=== PATIENT | male | born 1975 | race Two or more races ===

== ENCOUNTER 2023-08-07 18:07 | Inpatient (IN) | payer SELFPAY ==
[~2023-08-07] VITALS: Ht 172.7 cm; Wt 108.0 kg
[2023-08-07 18:48] VITALS: PULSE 79; RESP 14; O2SAT 96
[2023-08-07 19:29] LABS: Basophils # (auto) 0.1 10 ^3/uL (0-0.2); Basophils % (auto) 0.7 % (0.0-2.0); Eosinophils # (auto) 0.2 10 ^3/uL (0-0.8); Eosinophils % (auto) 2.4 % (0.0-7.0); Hematocrit 47.6 % (41.0-53.0); Lymphocytes # (auto) 2.9 10 ^3/uL (0.4-5.4); Lymphocytes % (auto) 36.7 % (10.0-50.0); Mean Corpuscular Hemoglobin 32.9 pg (28.0-32.0); Mean Corpuscular Hgb Conc. 33.7 g/dL (32.0-36.0); Mean Corpuscular Volume 97.8 fL (80.0-100.0); Monocytes # (auto) 0.7 10 ^3/uL (0-1.3); Monocytes % (auto) 8.5 % (0.0-12.0); Neutrophils # (auto) 4.1 10 ^3/uL (1.6-8.6); Neutrophils % (auto) 51.7 % (37.0-80.0); Nucleated Red Blood Cells % 0.1 %; Red Blood Cells 4.87 10^6/uL (4.5-5.90); Red Cell Distribution Width 13.3 % (11.8-14.3)
[2023-08-07 19:30] VITALS: PULSE 76; RESP 13; O2SAT 93
[2023-08-07 19:41] LABS: Alanine Aminotransferase 69 U/L (7-40); Albumin 4.4 g/dL (3.2-4.8); Alkaline Phosphatase 110 U/L (46-116); Anion Gap 14 (5-15); Aspartate Aminotransferase 51 U/L (13-40); Calcium 9.3 mg/dL (8.5-10.1); Carbon Dioxide 20 mmol/L (20-30); Chloride 102 mmol/L (98-107); Glucose 364 mg/dL (74-106); Potassium 3.9 mmol/L (3.5-5.1); Sodium 136 mmol/L (136-145)
[2023-08-07 19:42] LABS: Bilirubin, Total 0.6 mg/dL (0.2-1.0); Total Protein 7.7 g/dL (5.7-8.2)
[2023-08-07 19:44] LABS: BUN/Creatinine Ratio 6.8 (10.0-20.0); Blood Urea Nitrogen < 5 mg/dL (9-23)
[2023-08-07] MEDS ORDERED: InsuLIN REG 1unit/0.01ml Soln (100units/ml) IV ONE ×2 (22:15→23:00)
[2023-08-07] MEDS ORDERED: DEXTROSE (50%) 50ML SYRG IV PRN (23:00)
[2023-08-07] MEDS ORDERED: DOCUSATE SOD 100 MG CAP PO PRN (23:15)
[2023-08-07] MEDS ORDERED: ONDANSETRON HCL 4 MG/2 ML VIAL IV PRN (23:15)
[2023-08-07] MEDS ORDERED: ACETAMINOPHEN 325 MG TAB PO PRN (23:15)
[2023-08-08] MEDS ORDERED: B-COMPLEX W/ C & FOLIC ACID(NEPHROVITE TAB) PO ONE (01:15)
[2023-08-08] MEDS: SODIUM CHLOR 0.9% PF (SALINE LOCK) 10ML VIAL/SYR IV SCH ×2 (06:09→14:08)
[2023-08-08] MEDS: ACCU-CHEK COMFORT CURVE STRIP VI SCH ×2 (06:45→11:46)
[2023-08-08] MEDS: InsuLIN REG 1unit/0.01ml Soln (100units/ml) SC SCH ×2 (06:45→11:45)
[2023-08-08 07:09] LABS: Urine Bacteria NONE SEEN /hpf (None Seen); Urine Blood Negative /uL (Negative); Urine Clarity Clear (Clear); Urine Color Yellow (Yellow); Urine Protein, UAD TRACE (Negative); Urine Specific Gravity 1.019 (1.001-1.035); Urine WBC <1 /hpf (0 - 3); Urine pH 5.5 (5.0-8.0)
[2023-08-08 07:27] VITALS: PULSE 90; RESP 18; O2SAT 96
[2023-08-08] MEDS: HYDROcodone-ACET 5/325MG TAB PO PRN ×2 (09:31→14:08)
[2023-08-08] MEDS ORDERED: ENOXAPARIN SOD 40 MG/0.4 ML SYRINGE SC SCH (10:00)
[2023-08-08 14:03] VITALS: BP 142/90; PULSE 76; RESP 16; TEMP 98.1; O2SAT 96
[2023-08-08] MEDS ORDERED: INSULIN LANTUS (GLARGINE) 1 /0.01ml (100units/ml) SC SCH (22:00)
[2023-08-08] MEDS ORDERED: InsuLIN REG 1unit/0.01ml Soln (100units/ml) SC SCH (22:00)
== END 2023-08-08 15:46 | disposition home or self-care (01) | DRG 638 ==
LOC: EDBD 18:07 → ER 18:07 → OVERFLOW 23:05
PROVIDERS: ADMIT Internal Medicine; ATTEND Internal Medicine
DX: E11.65 Type 2 diabetes mellitus with hyperglycemia (principal); I42.9 Cardiomyopathy, unspecified; R09.02 Hypoxemia; F10.10 Alcohol abuse, uncomplicated
CPT/HCPCS: 36415; 71045; 80053; 81001; 82962; 83036; 83880; 84484; 85025; 96374; G0378; J1815

== ENCOUNTER 2024-11-21 14:32 | Inpatient (IN) | payer MEDICAID ==
[~2024-11-21] VITALS: Ht 165.1 cm; Wt 79.5 kg
--- NOTE | 2024-11-21 15:51 | ED.PDOC ---
Musculoskeletal HPI Comments 49 year old male presents to the ED with a chief complaint of bilateral foot numbness onset 2 months. Patient states for the past 2 months, he has been experiencing bilateral foot numbness. For the past 2 weeks, patient noticed RT great toe is numb, red and warm to touch. He also states he has been experiencing joint pain for the past month. He saw PCP, was given medication with no improvement of symptoms. PMHx DM. Denies chest pain, shortness of breath, dizziness, nausea, vomiting, diarrhea, fever, chills. No other symptoms or modifying factors present at this time. Chief Complaint: Lower Extremity Time Seen by MD: 15:30 Reviewed Notes: Medications, Allergies Allergies: Coded Allergies: NO KNOWN ALLERGIES (Unverified , 08/07/23) Information Source: Patient Mode of Arrival: Ambulatory Location: Bilateral Extremity Location: Foot Timing: Months Prehospital treatment: None Severity: Moderate Able to Move Extremity: Yes Bear Weight: Limited Pain: Moderate Mechanism: Spontaneous Circumstances: Spontaneous Onset of Symptoms: Spontaneous Symptoms: Pain DVT Risk Factors: NONE Associated signs and symptoms: Numbness (bilateral ) Past Medical History PAST MEDICAL HISTORY: DM Surgical History: Denies all surgeries Family History Family History: Unknown Social History Smoker: Non-Smoker Alcohol: Heavy Drugs: Denies Drug Use Lives In: Home Constitutional: denies: chills, diaphoresis, fatigue, fever, malaise, sweats, weakness, others EENTM: denies: blurred vision, double vision, ear bleeding, ear discharge, ear drainage, ear pain, ear ringing, eye pain, eye redness, hearing loss, mouth pain, mouth swelling, nasal discharge, nose bleeding, nose congestion, nose pain, photophobia, tearing, throat pain, throat swelling, voice changes, others Respiratory: denies: cough, hemoptysis, orthopnea, SOB at rest, shortness of breath, SOB with excertion, stridor, wheezing, others Cardiovascular: denies: chest pain, dizzy spells, diaphoresis, Dyspnea on exertion, edema, irregular heart beat, left arm pain, lightheadedness, palpitations, PND, syncope, others Gastrointestinal: denies: abdomen distended, abdominal pain, blood streaked bowels, constipated, diarrhea, dysphagia, difficulty swallowing, hematemesis, melena, nausea, poor appetite, poor fluid intake, rectal bleeding, rectal pain, vomiting, others Genitourinary: denies: burning, dysuria, flank pain, frequency, hematuria, incontinence, penile discharge, penile sore, pain, testicle pain, testicle swelling, urgency, others Neurological: reports: numbness (bilateral feet); denies: dizziness, fainting, headache, left sided numbness, left sided weakness, paresthesia, pre-existing deficit, right sided numbness, right sided weakness, seizure, speech problems, tingling, tremors, weakness, others Musculoskeletal: reports: joint pain, others (RT big toe pain, swelling, numbness); denies: back pain, gout, joint swelling, muscle pain, muscle stiffnes s, neck pain Integumetry: denies: bruises, change in color, change in hair/nails, dryness, laceration, lesions, lumps, rash, wounds, others Allergic/Immunocompromised: denies: Difficulty Healing, Frequent Infections, Hives, Itching, others Hematologic/Lymphatic: denies: anemia, blood clots, easy bleeding, easy bruisi ng, swollen glands, others Endocrine: denies: excessive hunger, excessive sweating, excessive thirst, exce ssive urination, flushing, intolerance to cold, intolerance to heat, unexplained weight gain, unexplained weight loss, others Psychiatric: denies: anxiety, bipolar disorder, depression, hopeless, panic disorder, schizophrenia, sleepless, suicidal, others All Other Systems: Reviewed and Negative Physical Exam General Appearance: No Apparent Distress, Normal HEENT: Normal ENT Inspection, Pharynx Normal, TMs Normal Neck: Full Range of Motion, Non-Tender, Normal, Normal Inspection Respiratory: Chest Non-Tender, Lungs Clear, No Accessory Muscle Use, No Respiratory Distress, Normal Breath Sounds Cardiovascular: No Edema, No JVD, No Murmur, No Gallop, Normal Peripheral Pulses, Regular Rate/Rhythm Breast Exam: Deferred Gastrointestinal: No Organomegaly, Non Tender, No Pulsatile Mass, Normal Bowel Sounds, Soft Genitalia: Deferred Pelvic: Deferred Rectal: Deferred Extremities: No calf tenderness, Normal capillary refill, Other (erythema and warmth to RT big toe) Musculoskeletal : Apperance: Normal Neurologic: Alert, wildlife conservation officer II-XII nml as Tested, No Motor Deficits, Normal Affect, Normal Mood, No Sensory Deficits Cerebellar Function: Normal Reflexes: Normal Skin: Dry Lymphatic: No Adenopathy Was a procedure done? Was a procedure done?: No Differential Diagnosis EXT Differential Diagnosis: Cellulitis, Fracture X-Ray, Labs, Meds, VS Vital Signs Date Time Temp Pulse Resp B/P (MAP) Pulse Ox O2 Delivery O2 Flow Rate FiO2 11/21/24 16:28 98.6 78 16 136/90 (105) 98 98.6 11/21/24 14:50 98.6 84 16 154/94 (114) 97 98.6 Lab Test 11/21/24 16:00 Range/Units White Blood Count 9.0 4.4-10.8 10^3/uL Red Blood Count 4.21 L 4.5-5.90 10^6/uL Hemoglobin 13.8 13.5-17.5 g/dL Hematocrit 40.1 L 41.0-53.0 % Mean Corpuscular Volume 95.3 80.0-100.0 fL Mean Corpuscular Hemoglobin 32.7 H 28.0-32.0 pg Mean Corpuscular Hemoglobin Concent 34.3 32.0-36.0 g/dL Red Cell Distribution Width 12.3 11.8-14.3 % Platelet Count 212 140-450 10^3/uL Mean Platelet Volume 7.8 6.9-10.8 fL Neutrophils (%) (Auto) 50.5 37.0-80.0 % Lymphocytes (%) (Auto) 35.7 10.0-50.0 % Monocytes (%) (Auto) 9.8 0.0-12.0 % Eosinophils (%) (Auto) 3.3 0.0-7.0 % Basophils (%) (Auto) 0.7 0.0-2.0 % Neutrophils # (Auto) 4.6 1.6-8.6 10 ^3/uL Lymphocytes # (Auto) 3.2 0.4-5.4 10 ^3/uL Monocytes # (Auto) 0.9 0-1.3 10 ^3/uL Eosinophils # (Auto) 0.3 0-0.8 10 ^3/uL Basophils # (Auto) 0.1 0-0.2 10 ^3/uL Nucleated Red Blood Cells 0.0 % Sodium Level 140 136-145 mmol/L Potassium Level 3.5 3.5-5.1 mmol/L Chloride Level 108 H 98-107 mmol/L Carbon Dioxide Level 23 20-31 mmol/L Anion Gap 9 5-15 Blood Urea Nitrogen 15 9-23 mg/dL Creatinine 0.65 L 0.700-1.30 mg/dL Glomerular Filtration Rate Calc 116 >90 mL/min BUN/Creatinine Ratio 23.1 H 10.0-20.0 Serum Glucose 98 74-106 mg/dL Lactic Acid Level 1.4 0.4-2.0 mmol/L Calcium Level 9.1 8.7-10.4 mg/dL Total Bilirubin 1.0 0.2-1.0 mg/dL Aspartate Amino Transferase (AST) 21 13-40 U/L Alanine Aminotransferase (ALT) 17 7-40 U/L Alkaline Phosphatase 80 46-116 U/L Total Protein 7.3 5.7-8.2 g/dL Albumin 4.1 3.2-4.8 g/dL Current Medications Medications (Trade) Dose Ordered Sig/Kelsey Route Start Time Stop Time Status Last Admin Sodium Chloride 1,000 ml @ 1,000 mls/hr Q1H ONCE IV 11/21/24 15:45 11/21/24 16:44 DC 11/21/24 16:21 Vancomycin HCl 200 ml @ 200 mls/hr ONCE ONCE IV 11/21/24 15:45 11/21/24 16:44 DC 11/21/24 16:21 Cefepime HCl 50 ml @ 12.5 mls/hr ONCE ONCE IV 11/21/24 15:45 11/21/24 19:44 11/21/24 17:07 Time of 1ST Reevaluation: 16:00 Reevaluation 1ST: Unchanged Patient Education/Counseling: Diagnosis, Treatment, Prognosis Family Education/Counseling: No Family Present Additional Information The following tests were ordered, and results were reviewed by me: XY R FOOT 3V, CBC, LA W/ REFLEX, CMP, BLOOD CULTURE I reviewed and agreed with the following test results read by other providers: XY R FOOT 3V I discussed treatment and results with medical personnel and: Patient Comprehensive systems review obtained and negative except for what is stated in the HPI. Departure 1 Departure Time of Disposition: 18:02 (Patient with concern for cellulitis. Patient's labs are benign however patient's symptoms seem to be worsening. We will empirically cover patient with antibiotics and admit for further workup) Impression: Primary Impression: Cellulitis of right lower extremity Additional Impressions: Paresthesias Generalized weakness Uncontrolled diabetes mellitus Qualified Codes: E11.65 - Type 2 diabetes mellitus with hyperglycemia Disposition: 09 ADMITTED INPATIENT Admit to: Med Surg Condition: Serious Critical Care Note Critical Care Time?: No Stability Stability form required: No I personally scribed for LORA GÓMEZ MD ([email or web address]) on 11/21/24 at 15:51. Electronically submitted by Sonia Rodrigues ([email or web address]). I personally scribed for LORA GÓMEZ MD ([email or web address]) on 11/21/24 at 15:52. Electronically submitted by Sonia Rodrigues ([email or web address]). LORA GÓMEZ MD Nov 21, 2024 15:51
--- NOTE | 2024-11-21 16:05 | DVH ---
CLINICAL INDICATION: right foot pain TECHNIQUE: 3 radiographic views of the right foot were obtained. Comparison: None FINDINGS/IMPRESSION: There is no evidence of acute fracture or dislocation. The visualized joint space is well maintained. The alignment is anatomical. There is no radiopaque foreign body.
[2024-11-21 16:19] LABS: Basophils # (auto) 0.1 10 ^3/uL (0-0.2); Basophils % (auto) 0.7 % (0.0-2.0); Eosinophils # (auto) 0.3 10 ^3/uL (0-0.8); Eosinophils % (auto) 3.3 % (0.0-7.0); Hematocrit 40.1 % (41.0-53.0); Hemoglobin 13.8 g/dL (13.5-17.5); Lymphocytes # (auto) 3.2 10 ^3/uL (0.4-5.4); Lymphocytes % (auto) 35.7 % (10.0-50.0); Mean Corpuscular Hemoglobin 32.7 pg (28.0-32.0); Mean Corpuscular Hgb Conc. 34.3 g/dL (32.0-36.0); Mean Corpuscular Volume 95.3 fL (80.0-100.0); Monocytes # (auto) 0.9 10 ^3/uL (0-1.3); Monocytes % (auto) 9.8 % (0.0-12.0); Neutrophils # (auto) 4.6 10 ^3/uL (1.6-8.6); Neutrophils % (auto) 50.5 % (37.0-80.0); Platelet Count (auto) 212 10^3/uL (140-450); Red Blood Cells 4.21 10^6/uL (4.5-5.90); Red Cell Distribution Width 12.3 % (11.8-14.3)
[2024-11-21] MEDS: SODIUM CHLORIDE 0.9% 1,000 ML IV ONE (16:21)
[2024-11-21] MEDS: VANCOMYCIN 1GM/200ML PM 200 ML IV ONE (16:21)
[2024-11-21 16:35] LABS: Alanine Aminotransferase 17 U/L (7-40); Albumin 4.1 g/dL (3.2-4.8); Alkaline Phosphatase 80 U/L (46-116); Anion Gap 9 (5-15); Aspartate Aminotransferase 21 U/L (13-40); BUN/Creatinine Ratio 23.1 (10.0-20.0); Blood Urea Nitrogen 15 mg/dL (9-23); Calcium 9.1 mg/dL (8.7-10.4); Carbon Dioxide 23 mmol/L (20-31); Glucose 98 mg/dL (74-106); Sodium 140 mmol/L (136-145); Total Protein 7.3 g/dL (5.7-8.2)
[2024-11-21 16:40] LABS: Chloride 108 mmol/L (98-107); Potassium 3.5 mmol/L (3.5-5.1)
[2024-11-21] MEDS: CEFEPIME 2GM/50ML NS 50 ML IV ONE (17:07)
--- NOTE | 2024-11-21 23:11 | DVHHPRES ---
History of Present Illness Resident Creating Document: MACHELLE GAY History of Present Illness Demetris Caballero is a 49-year-old male patient who presents to the ED with chief complaint of nonhealing right hallux wound which has been draining purulent discharge from nail bed for the past 2-3 days. Patient also reports bilateral foot numbness from mid leg towards feet. Denies fever, chills, palpitation, syncope, chest pain, dyspnea, abdominal pain, nausea, vomiting, diarrhea, sick contacts, recent travel and other motor or sensory deficits. Past medical history: Diabetes insulin dependent, hypertension, questionable osteoarthritis which started two months ago (he was going to see a broadcasting equipment mechanic as outpatient), history of CHF (he believes ejection fraction is 40%), depression, GERD Surgical history: Hernia repair. Coronary angiography in 2023 with no stent placement Family history: Diabetes in father, mother had heart disease Social history: Lives in [place] with and his offsprings. Ex polysubstance abuse (ethanol which he quit one year ago and methamphetamine which he quit eight years ago). Denies current tobacco, alcohol and other drug abuse. Allergies: Denies Home medication: Insulin, metformin, escitalopram, vitamin-B, pantoprazole, glimepiride, aspirin 81 mg p.o. daily, propranolol 20 mg p.o. daily Patient seen and examined at bedside. Continues complaining of bilateral feet numbness. No purulent discharge from right hallux seen today. Past Medical History Per HPI Past Surgical History Per HPI Family History Per HPI Past Social History Per HPI Review of Systems Review of Systems Per HPI Allergies: Coded Allergies: NO KNOWN ALLERGIES (Unverified , 08/07/23) Exam Vital Signs Vital Signs Date Time Temp Pulse Resp B/P (MAP) Pulse Ox O2 Delivery O2 Flow Rate FiO2 11/21/24 16:28 98.6 78 16 136/90 (105) 98 98.6 Exam Patient lying in bed, in no acute distress General: Lucid, afebrile, mucosae are moist Cardiovascular: Normal S1 and S2. No murmurs, gallops or rubs. Bilateral pulses are conserved. Respiratory: Normal ventilation mechanics. Clear lung sounds on auscultation Abdomen: Soft, nontender, no organomegaly, normal bowel sounds MSK/skin: Mobilizes 4 limbs. Skin is dry and warm. Right foot presents erythema predominantly in toe area, predominant xerosis, no purulent discharge from toe is obtained. Neurological: Oriented in 3 spheres. No motor no sensitive deficits. Pupils are isocoric and reactive Labs/Xrays Labs Test 11/21/24 16:00 Range/Units White Blood Count 9.0 4.4-10.8 10^3/uL Red Blood Count 4.21 L 4.5-5.90 10^6/uL Hemoglobin 13.8 13.5-17.5 g/dL Hematocrit 40.1 L 41.0-53.0 % Mean Corpuscular Volume 95.3 80.0-100.0 fL Mean Corpuscular Hemoglobin 32.7 H 28.0-32.0 pg Mean Corpuscular Hemoglobin Concent 34.3 32.0-36.0 g/dL Red Cell Distribution Width 12.3 11.8-14.3 % Platelet Count 212 140-450 10^3/uL Mean Platelet Volume 7.8 6.9-10.8 fL Neutrophils (%) (Auto) 50.5 37.0-80.0 % Lymphocytes (%) (Auto) 35.7 10.0-50.0 % Monocytes (%) (Auto) 9.8 0.0-12.0 % Eosinophils (%) (Auto) 3.3 0.0-7.0 % Basophils (%) (Auto) 0.7 0.0-2.0 % Neutrophils # (Auto) 4.6 1.6-8.6 10 ^3/uL Lymphocytes # (Auto) 3.2 0.4-5.4 10 ^3/uL Monocytes # (Auto) 0.9 0-1.3 10 ^3/uL Eosinophils # (Auto) 0.3 0-0.8 10 ^3/uL Basophils # (Auto) 0.1 0-0.2 10 ^3/uL Nucleated Red Blood Cells 0.0 % Sodium Level 140 136-145 mmol/L Potassium Level 3.5 3.5-5.1 mmol/L Chloride Level 108 H 98-107 mmol/L Carbon Dioxide Level 23 20-31 mmol/L Anion Gap 9 5-15 Blood Urea Nitrogen 15 9-23 mg/dL Creatinine 0.65 L 0.700-1.30 mg/dL Glomerular Filtration Rate Calc 116 >90 mL/min BUN/Creatinine Ratio 23.1 H 10.0-20.0 Serum Glucose 98 74-106 mg/dL Lactic Acid Level 1.4 0.4-2.0 mmol/L Calcium Level 9.1 8.7-10.4 mg/dL Total Bilirubin 1.0 0.2-1.0 mg/dL Aspartate Amino Transferase (AST) 21 13-40 U/L Alanine Aminotransferase (ALT) 17 7-40 U/L Alkaline Phosphatase 80 46-116 U/L Total Protein 7.3 5.7-8.2 g/dL Albumin 4.1 3.2-4.8 g/dL Assessment/Plan Assessment/Plan Assessment: Diabetic foot Cellulitis Rule out osteomyelitis Rule out peripheral artery disease Diabetic Polyneuropathy Hypertension Dyslipidemia History of CHF and polysubstance abuse Questionable nonischemic cardiomyopathy (LVEF per patient 40%) Diabetes insulin dependent - controlled (hemoglobin A1c 7%) Vitamin-D deficiency Plan: Currently patient under empiric IV antibiotic (cefepime and vancomycin). Foot x-ray showed no abnormalities. Patient may benefit from foot MRI Obtain blood and wound culture, pending. Wound consult on board Consulted Podiatry. Ordered echocardiogram to evaluate cardiac dysfunction Ordered bilateral arterial duplex of lower limbs to ruled out peripheral artery disease Started patient on gabapentin for diabetic polyneuropathy Switch propranolol to carvedilol Continue with aspirin atorvastatin Goals of care discussed with patient for over 18 minutes: Full code status Discussed plan with Dr. Trejo, patient and nurses: Currently under empiric IV antibiotic, consulted Podiatry and Wound consult, obtained cultures. Patient may benefit from foot MRI, to be evaluated by appliance mechanic. Ordered echocardiogram and bilateral lower limb arterial duplex. Plan discussed with: Patient, Other (Nurses) My Orders Orders - MACHELLE GAY RESIDENT Procedure Category Date Status Time Admit ADMIT 11/21/24 Transmitted 23:04 Code Status CODE 11/21/24 Transmitted 23:04 Vital Signs [facility] 11/21/24 Transmitted 23:04 Review Orders With [facility] 11/21/24 Transmitted Adm. 23:04 Npo (Nothing By DIET 11/22/24 Transmitted Mouth) Diet Breakfast Lorazepam Tablet PHA 11/21/24 Transmitted (Ativan Tablet) 23:15 Docusate Sodium PHA 11/21/24 Transmitted Capsule (Colace 23:15 Notify Of Changes [facility] 11/21/24 Transmitted From Base 23:04 Advance Directive [facility] 11/21/24 Transmitted 23:04 Echo 2d Mode Cardiac US 11/21/24 Transmitted DOP 23:04 Patient Condition ORDERS 11/21/24 Transmitted 23:04 Allergies [facility] 11/21/24 Transmitted 23:04 Ondansetron Hcl PHA 11/21/24 Transmitted (Zofran) 23:15 Morphine 2mg Iv Q4hprn PHA 11/21/24 Transmitted 23:15 Lovenox 40mg PHA 11/22/24 Transmitted 10:00 Oxygen By Nasal RT 11/21/24 Transmitted Cannula 23:04 Stat Ekg For Chest [facility] 11/21/24 Transmitted Pain 23:04 Notify Of Changes [facility] 11/21/24 Transmitted From Base 23:04 Certified Medical Coding Specialist For [facility] 11/21/24 Transmitted 24 Hours 23:04 Emergency Dysrhythmia [facility] 11/21/24 Transmitted Protocol 23:04 Rhythm Strips Once [facility] 11/21/24 Transmitted Every Shift 23:04 Phosphorus LAB 11/21/24 Transmitted 23:04 Vitamin D, 25-Hydroxy LAB 11/21/24 Transmitted 23:04 Vitamin B12 LAB 11/21/24 Transmitted 23:04 Urinalysis LAB 11/21/24 Transmitted 23:04 Thyroid Stimulating LAB 11/21/24 Transmitted Hormone 23:04 Magnesium LAB 11/21/24 Transmitted 23:04 Lipid Panel LAB 11/21/24 Transmitted 23:04 Hemoglobin A1c LAB 11/21/24 Transmitted 23:04 Drug Screen LAB 11/21/24 Transmitted 23:04 Complete Blood Count LAB 11/22/24 Verified 04:00 Comprehensive LAB 11/22/24 Verified Metabolic Panel 04:00 Chest Xray 1 View XY 11/22/24 Transmitted 05:00 Chest Xray 1 View XY 11/23/24 Transmitted 05:00 Chest Xray 1 View XY 11/24/24 Transmitted 05:00 Chest Xray 1 View XY 11/25/24 Transmitted 05:00 Chest Xray 1 View XY 11/26/24 Transmitted 05:00 Chest Xray 1 View XY 11/27/24 Transmitted 05:00 Chest Xray 1 View XY 11/28/24 Transmitted 05:00 Chest Xray 1 View XY 11/29/24 Transmitted 05:00 Chest Xray 1 View XY 11/30/24 Transmitted 05:00 Chest Xray 1 View XY 12/01/24 Transmitted 05:00 Date of Service: Nov 21, 2024 Billing Provider: ATA TREJO MD Common Visit Codes: [id number] INP/OBS CARE (HIGH) MACHELLE GAY RESIDENT Nov 21, 2024 23:11 ATA TREJO MD Nov 22, 2024 13:27
[2024-11-21] MEDS ORDERED: LORazepam 0.5 MG TAB PO PRN (23:15)
[2024-11-21] MEDS ORDERED: DOCUSATE SOD 100 MG CAP PO PRN (23:15)
[2024-11-21 23:35] LABS: Phosphorus 3.3 mg/dL (2.4-5.1)
[2024-11-21 23:38] LABS: Magnesium 1.4 mg/dL (1.6-2.6)
[2024-11-22] VITALS (7 sets, daily range): BP systolic 113–152; BP diastolic 62–101; PULSE 61–86; RESP 17–20; TEMP 97.4–98.2; O2SAT 97–99
[2024-11-22] MEDS: MORPHINE SULFATE INJ 2 MG/ml SYRG IV PRN (00:07)
[2024-11-22] MEDS ORDERED: DEXTROSE (50%) 50ML SYRG IV PRN (03:45)
[2024-11-22] MEDS ORDERED: VANCOMYCIN PER PHARMACY 0 MG IV SCH (03:45)
[2024-11-22] MEDS ORDERED: MORPHINE SULFATE INJ 2 MG/ml SYRG IV PRN (03:45)
[2024-11-22 04:34] LABS: Basophils # (auto) 0 10 ^3/uL (0-0.2); Basophils % (auto) 0.3 % (0.0-2.0); Eosinophils # (auto) 0.4 10 ^3/uL (0-0.8); Eosinophils % (auto) 3.9 % (0.0-7.0); Hemoglobin 13.4 g/dL (13.5-17.5); Lymphocytes # (auto) 3.8 10 ^3/uL (0.4-5.4); Lymphocytes % (auto) 40.9 % (10.0-50.0); Mean Corpuscular Hemoglobin 32.3 pg (28.0-32.0); Mean Corpuscular Hgb Conc. 33.6 g/dL (32.0-36.0); Mean Corpuscular Volume 96.1 fL (80.0-100.0); Monocytes # (auto) 0.8 10 ^3/uL (0-1.3); Monocytes % (auto) 8.2 % (0.0-12.0); Neutrophils # (auto) 4.4 10 ^3/uL (1.6-8.6); Neutrophils % (auto) 46.7 % (37.0-80.0); Nucleated Red Blood Cells % 0.1 %; Platelet Count (auto) 181 10^3/uL (140-450); Red Blood Cells 4.16 10^6/uL (4.5-5.90); Red Cell Distribution Width 12.1 % (11.8-14.3); White Blood Cell 9.4 10^3/uL (4.4-10.8)
[2024-11-22 04:46] LABS: Alanine Aminotransferase 16 U/L (7-40); Albumin 3.7 g/dL (3.2-4.8); Alkaline Phosphatase 74 U/L (46-116); Anion Gap 9 (5-15); Aspartate Aminotransferase 20 U/L (13-40); Carbon Dioxide 23 mmol/L (20-31); Potassium 3.5 mmol/L (3.5-5.1); Sodium 140 mmol/L (136-145); Total Protein 6.7 g/dL (5.7-8.2)
[2024-11-22] MEDS: PANTOPRAZOLE 40 MG/10 ML VIAL INJ IV ONE (05:10)
[2024-11-22 05:11] LABS: Chloride 108 mmol/L (98-107); Glucose 114 mg/dL (74-106)
[2024-11-22] MEDS: MAGNESIUM SULFATE 1GM/100ML 100 ML IV ONE (05:11)
[2024-11-22 05:19] LABS: BUN/Creatinine Ratio 22.6 (10.0-20.0); Blood Urea Nitrogen 12 mg/dL (9-23)
--- NOTE | 2024-11-22 06:58 | DVH ---
EXAM: XR Chest, 1 View CLINICAL INDICATION: CHF TECHNIQUE: Frontal view of the chest. COMPARISON: XY CHEST PORTABLE on DOS: 08/07/23 FINDINGS: LUNGS AND PLEURAL SPACES: Unremarkable. No consolidation. No pneumothorax. HEART: Unremarkable. No cardiomegaly. MEDIASTINUM: Unremarkable. Normal mediastinal contour. BONES/JOINTS: Unremarkable. No acute fracture. OTHER FINDINGS: . None. IMPRESSION: No acute cardiopulmonary process.
[2024-11-22] MEDS: InsuLIN REG 1unit/0.01ml Soln (100units/ml) SC SCH (07:00)
[2024-11-22] MEDS: ACCU-CHEK COMFORT CURVE STRIP VI SCH (07:00)
[2024-11-22] MEDS: CEFEPIME 1GM/ 50ML 50 ML IV SCH (07:45)
[2024-11-22] MEDS: GABAPENTIN 100 MG CAP PO SCH ×2 (07:45→22:15)
--- NOTE | 2024-11-22 09:52 | DVH ---
Bilateral Lower Extremity Arterial Duplex Date: 11/22/2024 08:16 AM Clinical History: Rule out PAD Comparison: None Findings: Duplex Doppler evaluation including color Doppler and spectral/pulsed waveform analysis of the lower extremity arteries was performed. Bilateral triphasic waveforms IMPRESSION: There is no evidence for peripheral vascular insufficiency in the right lower extremity. There is no evidence for peripheral vascular insufficiency in the left lower extremity. No significant focal stenosis is identified. END IMPRESSION:
[2024-11-22] MEDS: ENOXAPARIN SOD 40 MG/0.4 ML SYRINGE SC SCH (10:03)
[2024-11-22] MEDS: CARVEDILOL 3.125 MG TAB PO SCH (10:03)
[2024-11-22] MEDS: ASPirin 81 mg TAB PO SCH (10:04)
[2024-11-22] MEDS: MULTIPLE VITAMIN TAB PO SCH (10:36)
[2024-11-22] MEDS: ERGOCALCIFEROL 50,000 UNIT(1.25MG) CAP PO SCH (10:36)
--- NOTE | 2024-11-22 15:25 | DVH ---
CLINICAL HISTORY: 49 years old, Male; RULE OUT OSTEOMYELITIS. Indication for recent right foot radio graphs was right foot pain. TECHNIQUE: Multi sequence multi planar MRI images of the right midfoot and forefoot were obtained wi thout IV contrast. COMPARISON: Right foot radiographs dated 11/21/2024. FINDINGS: No acute fracture or focal marrow contusion. No marrow signal abnormality identified to cifuentes ggest osteomyelitis. Mild T2 hyperintense signal in the distal shaft of the 1st metatarsal, may be du e to interosseous cyst. Probable intraosseous ganglion cyst in the calcaneus near the angle of Gissan e. Mild subcutaneous edema, most prominent in the great toe, which is nonspecific, although may be se en with cellulitis in the appropriate clinical setting. No organized fluid collection identified to s uggest abscess. IMPRESSION: 1. Mild subcutaneous edema, most prominent in the great toe, which is nonspecific, but may be seen wi th cellulitis in the appropriate clinical setting. 2. No evidence of abscess or osteomyelitis. 3. Cystic change in the distal 1st metatarsal shaft and in the calcaneus near the angle of Gissane.
[2024-11-22] MEDS ORDERED: HYDROcodone-ACET 5/325MG TAB PO PRN (16:15)
--- NOTE | 2024-11-22 16:44 | DVHPNRES ---
Progress Note Date Seen: Nov 22, 2024 Resident Creating Document: REINIER MORFIN BHUPINDER Has the PT tested + for MRSA If YES, has PT been informed?: No Medical Necessity Reason Pt with a Central, PICC or Fol: No Subjective Review of Systems This is a 49-year-old male with past medical history of diabetes came to the hospital due to nonhealing right hallus wound with purulent discharge from the nail bed from 2-3 days. He also reports bilateral lower limb numbness and paresthesia. He denies fever, chest pain, shortness of breath, abdominal pain, nausea, vomiting, or any recent bowel and bladder habit changes. PMHx: Diabetes insulin dependent, hypertension, questionable osteoarthritis which started two months ago (he was going to see a paint preparer as outpatient), history of CHF (he believes ejection fraction is 40%), depression, GERD PSHx: Hernia repair. Coronary angiography in 2023 with no stent placement Family history: Diabetes in father, mother had heart disease Social history: Lives in [place] with and his offsprings. Ex polysubstance abuse (ethanol which he quit one year ago and methamphetamine which he quit eight years ago). Denies current tobacco, alcohol and other drug abuse. Home medication: Insulin, metformin, escitalopram, vitamin-B, pantoprazole, glimepiride, aspirin 81 mg p.o. daily, propranolol 20 mg p.o. daily Allergic history: No known allergy Patient seen and examined at the bedside. Patient is still complaining of left foot numbness and paresthesia. Patient reports: No new complaints, Feels better Changes from previous H/P or p: No Changes Objective vital signs Vital Sign Date Time Temp Pulse Resp B/P (MAP) Pulse Ox O2 Delivery O2 Flow Rate FiO2 11/22/24 16:35 98.2 76 20 152/101 (118) 97 98.2 11/22/24 02:56 Room Air* 0 21 medications Current Medications Medications Dose Ordered Sig/Kelsey Route Start Time Stop Time Status Last Admin Dose Admin Lorazepam 0.5 mg Q6HP PRN PO 11/21/24 23:15 Docusate Sodium 100 mg BIDPRN PRN PO 11/21/24 23:15 Ondansetron HCl 4 mg Q4HP PRN IV 11/21/24 23:15 Morphine Sulfate 2 mg Q4HPRN PRN IV 11/21/24 23:15 11/22/24 13:16 2 MG Enoxaparin Sodium 40 mg DAILY SC 11/22/24 10:00 11/22/24 10:03 40 MG Cefepime HCl 50 ml @ 12.5 mls/hr Q8HR IV 11/22/24 06:00 11/22/24 15:24 12.5 MLS/HR Vancomycin HCl 0 ml @ 0 mls/hr UD IV 11/22/24 03:45 Morphine Sulfate 2 mg Q6HPRN PRN IV 11/22/24 03:45 Pantoprazole Sodium 40 mg DAILY IV 11/23/24 10:00 Diagnostic Test (Pha) 1 strip ACHS 11/22/24 07:00 11/22/24 16:20 1 STRIP Insulin Human Regular ACHS SC 11/22/24 07:00 Dextrose 50 ml UD PRN IV 11/22/24 03:45 Multivitamins 1 tab DAILY PO 11/22/24 10:00 11/22/24 10:36 1 TAB Aspirin 81 mg DAILY PO 11/22/24 10:00 11/22/24 10:04 81 MG Atorvastatin Calcium 40 mg HS PO 11/22/24 22:00 Carvedilol 3.125 mg Q12HR PO 11/22/24 10:00 11/22/24 10:03 3.125 MG Gabapentin 100 mg TID PO 11/22/24 06:00 11/22/24 15:24 100 MG Ergocalciferol 50,000 unit Q7D PO 11/22/24 10:00 11/22/24 10:36 50,000 UNIT Vancomycin HCl 100 ml @ 100 mls/hr Q8H IV 11/22/24 20:00 Acetaminophen/ Hydrocodone Bitart 1 tab Q6HPRN PRN PO 11/22/24 16:15 UNV Gabapentin 200 mg TID PO 11/22/24 22:00 UNV Cyclobenzaprine HCl 10 mg HS PO 11/22/24 22:00 11/26/24 22:00 UNV Examination General Appearance: Alert, Oriented X3, Cooperative, No acute distress HEENT: Atraumatic, PERRLA, EOMI, Mucous membrane moist/pink Respiratory: Clear to auscultation, Normal air movement Cardiovascular: Regular rate, Normal S1, Normal S2, No murmurs, no chest wall tenderness Abdominal: Normal bowel sounds, Soft, No tenderness, No hepatospenomegaly, No masses Extremities: Right foot presents erythema predominantly in toe area, predominant xerosis, no purulent discharge from toe is obtained. Skin: No rashes, No breakdown, No significant lesion Neuro: Normal gait, Normal speech, Strength at 5/5 X4 ext, Normal tone, Sensation intact, Cranial nerves 3-12 NL, Reflexes 2+ Psych/Mental Status: Mental status NL, Mood NL laboratory and microbiology Laboratory Tests 11/22/24 03:47 Test 11/22/24 03:47 Range/Units Serum Glucose 114 H 74-106 mg/dL Microbiology Date/Time Source Procedure Growth Status 11/21/24 16:00 Blood Blood Culture - Preliminary NO GROWTH AFTER 24 HOURS OF INCUBATION. Resulted Labs and/or images reviewed: Labs reviewed by me, Image(s) reviewed by me Problem List/Assessment/Plan Problem List/Assessment/Plan Diabetic foot Cellulitis Diabetes mellitus type 2 with hyperglycemia Diabetic neuropathy Hypertension Dyslipidemia History of heart failure Ruled out osteomyelitis/b.i.d. MRI shows Mild subcutaneous edema, most prominent in the great toe, which is nonspecific, but may be seen with cellulitis in the appropriate clinical setting.Cystic change in the distal 1st metatarsal shaft and in the calcaneus near the angle of Gissane On Doppler ultrasound there is no There is no evidence for peripheral vascular insufficiency in the right and left lower extremity. Consulted Podiatry Empiric antibiotic, vancomycin and cefepime Pain control Atorvastatin, aspirin and carvedilol DIET: Diabetic diet DVT PROPHYLAXIS: Lovenox CODE STATUS: Goal of care discussed for more than 18 minutes, full code DISPOSITION: Med/surge Patient's status and plan discussed with the patient. Case discussed with Dr. Massey. Plan discussed with: Patient, Other (RN) My Orders My Orders Orders - REINIER MORFIN RESDIENT Procedure Category Date Status Time Consistent DIET 11/22/24 Transmitted Carb(Ccho)Diabetes Dinner HERORYDMALHAJI,HEWAD RESDIENT Nov 22, 2024 16:44
[2024-11-22] MEDS: BACLOFEN 10 MG TAB PO ONE (17:04)
[2024-11-22] MEDS: VANCOMYCIN 750MG KIT 100 ML IV SCH (20:00)
[2024-11-22] MEDS: ATORVASTATIN 20 MG TAB PO SCH (22:14)
[2024-11-22] MEDS: CYCLOBENZAPRINE HCL 10 MG TAB PO SCH (22:15)
[2024-11-23 05:00] VITALS: BP 128/78; PULSE 90; RESP 18; TEMP 97.7; O2SAT 97
--- NOTE | 2024-11-23 06:22 | DVH ---
EXAM: XR Chest, 1 View CLINICAL INDICATION: CHF TECHNIQUE: Frontal view of the chest. COMPARISON: XY CHEST XRAY 1 VIEW on DOS: 11/22/24, XY CHEST PORTABLE on DOS: 08/07/23 FINDINGS: LUNGS AND PLEURAL SPACES: Unremarkable. No consolidation. No pneumothorax. HEART: Unremarkable. No cardiomegaly. MEDIASTINUM: Unremarkable. Normal mediastinal contour. BONES/JOINTS: Unremarkable. No acute fracture. OTHER FINDINGS: . None. IMPRESSION: No acute cardiopulmonary process.
[2024-11-23 07:07] LABS: Alanine Aminotransferase 21 U/L (7-40); Albumin 3.7 g/dL (3.2-4.8); Alkaline Phosphatase 80 U/L (46-116); Anion Gap 10 (5-15); Aspartate Aminotransferase 24 U/L (13-40); BUN/Creatinine Ratio 23.7 (10.0-20.0); Bilirubin, Total 0.9 mg/dL (0.2-1.0); Blood Urea Nitrogen 14 mg/dL (9-23); Calcium 9.2 mg/dL (8.7-10.4); Carbon Dioxide 25 mmol/L (20-31); Chloride 106 mmol/L (98-107); Potassium 3.5 mmol/L (3.5-5.1); Sodium 141 mmol/L (136-145); Total Protein 6.6 g/dL (5.7-8.2)
[2024-11-23 07:09] LABS: Glucose 169 mg/dL (74-106)
[2024-11-23 07:35] LABS: Basophils # (auto) 0 10 ^3/uL (0-0.2); Basophils % (auto) 0.6 % (0.0-2.0); Eosinophils # (auto) 0.3 10 ^3/uL (0-0.8); Eosinophils % (auto) 3.6 % (0.0-7.0); Hematocrit 39.7 % (41.0-53.0); Hemoglobin 13.7 g/dL (13.5-17.5); Lymphocytes # (auto) 2.6 10 ^3/uL (0.4-5.4); Lymphocytes % (auto) 30.2 % (10.0-50.0); Mean Corpuscular Hemoglobin 32.6 pg (28.0-32.0); Mean Corpuscular Hgb Conc. 34.5 g/dL (32.0-36.0); Mean Corpuscular Volume 94.4 fL (80.0-100.0); Monocytes # (auto) 0.7 10 ^3/uL (0-1.3); Monocytes % (auto) 8.6 % (0.0-12.0); Neutrophils # (auto) 4.9 10 ^3/uL (1.6-8.6); Nucleated Red Blood Cells % 0.1 %; Platelet Count (auto) 184 10^3/uL (140-450); Red Cell Distribution Width 12.4 % (11.8-14.3); White Blood Cell 8.6 10^3/uL (4.4-10.8)
[2024-11-23 08:00] VITALS: PULSE 82; RESP 18
[2024-11-23 09:00] VITALS: BP 132/85; PULSE 82; RESP 17; TEMP 99.3; O2SAT 98
[2024-11-23] MEDS: ONDANSETRON HCL 4 MG/2 ML VIAL IV PRN (09:05)
[2024-11-23] MEDS: PANTOPRAZOLE 40 MG/10 ML VIAL INJ IV SCH (09:06)
[2024-11-23 13:00] VITALS: BP 136/93; PULSE 85; RESP 18; TEMP 98.4; O2SAT 96
[2024-11-23] MEDS: AMPICILLIN & SULBACTAM SODIUM 3 GM in SODIUM CHL 0.9% 100 ML IV SCH (13:28)
--- NOTE | 2024-11-23 14:43 | DVHINCON2 ---
Date Seen: Nov 23, 2024 Reason for Consultation Right hallux wound History of Present Illness Demetris Caballero is a 49-year-old male patient who presents to the ED with chief complaint of nonhealing right hallux wound which has been draining purulent discharge from nail bed for the past 2-3 days. Patient also reports bilateral foot numbness from mid leg towards feet. Denies fever, chills, palpitation, syncope, chest pain, dyspnea, abdominal pain, nausea, vomiting, diarrhea, sick contacts, recent travel and other motor or sensory deficits. Past medical history: Diabetes insulin dependent, hypertension, questionable osteoarthritis which started two months ago (he was going to see a post tensioning ironworker helper as outpatient), history of CHF (he believes ejection fraction is 40%), depression, GERD Surgical history: Hernia repair. Coronary angiography in 2023 with no stent placement Family history: Diabetes in father, mother had heart disease Social history: Lives in [place] with and his offsprings. Ex polysubstance abuse (ethanol which he quit one year ago and methamphetamine which he quit eight years ago). Denies current tobacco, alcohol and other drug abuse. Allergies: Denies Home medication: Insulin, metformin, escitalopram, vitamin-B, pantoprazole, glimepiride, aspirin 81 mg p.o. daily, propranolol 20 mg p.o. daily Patient seen and examined at bedside. Continues complaining of bilateral feet numbness. No purulent discharge from right hallux seen today. Past Medical History See H&P Past Surgical History See H&P Family History: Diabetes mellitus G8 FATHER Sinus bradycardia G8 MOTHER Allergies: Coded Allergies: NO KNOWN ALLERGIES (Unverified , 08/07/23) Current Medications Current Medications Medications (Trade) Dose Ordered Sig/Kelsey Route PRN Reason Start Time Stop Time Status Last Admin Pantoprazole Sodium (Protonix) 40 mg DAILY IV 11/23/24 10:00 11/23/24 09:06 Atorvastatin Calcium (Lipitor) 40 mg HS PO 11/22/24 22:00 11/22/24 22:14 Vancomycin HCl 100 ml @ 100 mls/hr Q8H IV 11/22/24 20:00 11/23/24 12:09 DC 11/23/24 04:12 Acetaminophen/ Hydrocodone Bitart ([place] 5/325MG Tab) 1 tab Q6HPRN PRN PO MODERATE PAIN (4-6 PAIN SCALE) 11/22/24 16:15 Gabapentin (Neurontin Capsule) 200 mg TID PO 11/22/24 22:00 11/23/24 06:32 Cyclobenzaprine HCl (Flexeril Tablet) 10 mg HS PO 11/22/24 22:00 11/26/24 22:00 11/22/24 22:15 Ampicillin Sodium/ Sulbactam Sodium 3 gm/Sodium Chloride 100 ml @ 100 mls/hr Q6H IV 11/23/24 12:00 11/23/24 13:28 Vital Signs Vital Signs Date Time Temp Pulse Resp B/P (MAP) Pulse Ox O2 Delivery O2 Flow Rate FiO2 11/23/24 13:39 80 17 132/85 11/23/24 08:00 Room Air* 0 21 11/23/24 05:00 97.7 97 97.7 Physical Exam Dermatological: Skin is dry with mild erythema and some maceration around the wound site No gross deformities noted Mild non-pitting edema present bilaterally Right hallux cellulitis to right lateral medial border Vascular: Dorsalis pedis and posterior tibial pulses are 1+ bilaterally Capillary refill is under 2 seconds Skin temperature is warm bilaterally Neurologic: Protective sensation is absent on the plantar forefoot bilaterally Monofilament testing reveals decreased sensation in multiple plantar sites Musculoskeletal: Range of motion at the ankle and MTP joints is within normal limits. Strength is 5/5 in all tested muscle groups. Gait is antalgic due to offloading of the affected limb. Labs/Diagnostic Data Labs Test 11/23/24 11:38 11/23/24 06:17 11/21/24 16:00 Range/Units POC Glucose 118 H 70-106 mg/dl White Blood Count 8.6 4.4-10.8 10^3/uL Red Blood Count 4.20 L 4.5-5.90 10^6/uL Hemoglobin 13.7 13.5-17.5 g/dL Hematocrit 39.7 L 41.0-53.0 % Mean Corpuscular Volume 94.4 80.0-100.0 fL Mean Corpuscular Hemoglobin 32.6 H 28.0-32.0 pg Mean Corpuscular Hemoglobin Concent 34.5 32.0-36.0 g/dL Red Cell Distribution Width 12.4 11.8-14.3 % Platelet Count 184 140-450 10^3/uL Mean Platelet Volume 8.2 6.9-10.8 fL Neutrophils (%) (Auto) 57.0 37.0-80.0 % Lymphocytes (%) (Auto) 30.2 10.0-50.0 % Monocytes (%) (Auto) 8.6 0.0-12.0 % Eosinophils (%) (Auto) 3.6 0.0-7.0 % Basophils (%) (Auto) 0.6 0.0-2.0 % Neutrophils # (Auto) 4.9 1.6-8.6 10 ^3/uL Lymphocytes # (Auto) 2.6 0.4-5.4 10 ^3/uL Monocytes # (Auto) 0.7 0-1.3 10 ^3/uL Eosinophils # (Auto) 0.3 0-0.8 10 ^3/uL Basophils # (Auto) 0 0-0.2 10 ^3/uL Nucleated Red Blood Cells 0.1 % Sodium Level 141 136-145 mmol/L Potassium Level 3.5 3.5-5.1 mmol/L Chloride Level 106 98-107 mmol/L Carbon Dioxide Level 25 20-31 mmol/L Anion Gap 10 5-15 Blood Urea Nitrogen 14 9-23 mg/dL Creatinine 0.59 L 0.700-1.30 mg/dL Glomerular Filtration Rate Calc 120 >90 mL/min BUN/Creatinine Ratio 23.7 H 10.0-20.0 Serum Glucose 169 H 74-106 mg/dL Calcium Level 9.2 8.7-10.4 mg/dL Total Bilirubin 0.9 0.2-1.0 mg/dL Aspartate Amino Transferase (AST) 24 13-40 U/L Alanine Aminotransferase (ALT) 21 7-40 U/L Alkaline Phosphatase 80 46-116 U/L Total Protein 6.6 5.7-8.2 g/dL Albumin 3.7 3.2-4.8 g/dL Hemoglobin A1c 7.0 H <5.7 % A1C Lactic Acid Level 1.4 0.4-2.0 mmol/L Phosphorus Level 3.3 2.4-5.1 mg/dL Magnesium Level 1.4 L 1.6-2.6 mg/dL Triglycerides Level 84 < 150 mg/dL Cholesterol Level 176 < 200 mg/dL LDL Cholesterol 105 H < 100 mg/dL HDL Cholesterol 58 40-59 mg/dL Vitamin B12 Level 801 211-911 pg/mL Vitamin D 25-Hydroxy 25.8 L 30.0-100 ng/mL Thyroid Stimulating Hormone (TSH) 1.28 0.55-4.78 uIU/mL Microbiology Date/Time Source Procedure Growth Status 11/21/24 16:00 Blood Blood Culture - Preliminary NO GROWTH AFTER 24 HOURS OF INCUBATION. Resulted Problems(with codes): (1) Alcohol abuse (2) Hypoxia (3) Cardiomyopathy (4) Generalized weakness (5) Uncontrolled diabetes mellitus (6) Cellulitis of right lower extremity (7) Paresthesias Plan/Recommendation ASSESSMENT: Patient is a 49-year-old seen on the floor for right hallux cellulitis PLAN: - The patients chart was reviewed, clinical findings were discussed with the patient, the etiologies of the conditions were discussed in detail, and a treatment plan was agreed to at this time, with both oral and written instructions provided. - reviewed advanced imaging -discussed with the patient that he appears to have ingrown nail causing the cellulitis - recommend that he gets discharged home with p.o. Augmentin 875 - discussed having a partial nail removal and clinic - follow up me in clinic in 1 week All questions were answered and concerns addressed to the patient's satisfaction. The patient was given the phone number to the clinic and was told how to make contact with the clinic should any concerns or questions arise. Patient understands that if any questions or concerns arise prior to the next appointment, we should be contacted immediately. FOLLOW-UP: Continue to follow while inpatient Plan discussed with: Patient Date of Service: Nov 23, 2024 Billing Provider: NORMA PENA DPM Common Visit Codes: CONSULT ONLY Consultation Codes: [id number] CONSULT <80MIN NORMA PENA DPM Nov 23, 2024 14:43
[2024-11-23] MEDS ORDERED: AUG875T PO (14:50)
--- NOTE | 2024-11-23 14:51 | DVHDSRES ---
Discharge Summary Date of Admission Resident Creating Document: REINIER MORFIN RESDIENT Nov 21, 2024 at 23:04 Date of Discharge: Nov 23, 2024 Admitting Diagnosis Leg pain Wounds: Labs/Diagnostic Data: Laboratory Results Test 11/23/24 11:38 11/23/24 06:17 11/21/24 16:00 POC Glucose 118 mg/dl (70-106) White Blood Count 8.6 10^3/uL (4.4-10.8) Red Blood Count 4.20 10^6/uL (4.5-5.90) Hemoglobin 13.7 g/dL (13.5-17.5) Hematocrit 39.7 % (41.0-53.0) Mean Corpuscular Volume 94.4 fL (80.0-100.0) Mean Corpuscular Hemoglobin 32.6 pg (28.0-32.0) Mean Corpuscular Hemoglobin Concent 34.5 g/dL (32.0-36.0) Red Cell Distribution Width 12.4 % (11.8-14.3) Platelet Count 184 10^3/uL (140-450) Mean Platelet Volume 8.2 fL (6.9-10.8) Neutrophils (%) (Auto) 57.0 % (37.0-80.0) Lymphocytes (%) (Auto) 30.2 % (10.0-50.0) Monocytes (%) (Auto) 8.6 % (0.0-12.0) Eosinophils (%) (Auto) 3.6 % (0.0-7.0) Basophils (%) (Auto) 0.6 % (0.0-2.0) Neutrophils # (Auto) 4.9 10 ^3/uL (1.6-8.6) Lymphocytes # (Auto) 2.6 10 ^3/uL (0.4-5.4) Monocytes # (Auto) 0.7 10 ^3/uL (0-1.3) Eosinophils # (Auto) 0.3 10 ^3/uL (0-0.8) Basophils # (Auto) 0 10 ^3/uL (0-0.2) Nucleated Red Blood Cells 0.1 % Sodium Level 141 mmol/L (136-145) Potassium Level 3.5 mmol/L (3.5-5.1) Chloride Level 106 mmol/L (98-107) Carbon Dioxide Level 25 mmol/L (20-31) Anion Gap 10 (5-15) Blood Urea Nitrogen 14 mg/dL (9-23) Creatinine 0.59 mg/dL (0.700-1.30) Glomerular Filtration Rate Calc 120 mL/min (>90) BUN/Creatinine Ratio 23.7 (10.0-20.0) Serum Glucose 169 mg/dL (74-106) Calcium Level 9.2 mg/dL (8.7-10.4) Total Bilirubin 0.9 mg/dL (0.2-1.0) Aspartate Amino Transferase (AST) 24 U/L (13-40) Alanine Aminotransferase (ALT) 21 U/L (7-40) Alkaline Phosphatase 80 U/L (46-116) Total Protein 6.6 g/dL (5.7-8.2) Albumin 3.7 g/dL (3.2-4.8) Hemoglobin A1c 7.0 % A1C (<5.7) Lactic Acid Level 1.4 mmol/L (0.4-2.0) Phosphorus Level 3.3 mg/dL (2.4-5.1) Magnesium Level 1.4 mg/dL (1.6-2.6) Triglycerides Level 84 mg/dL (< 150) Cholesterol Level 176 mg/dL (< 200) LDL Cholesterol 105 mg/dL (< 100) HDL Cholesterol 58 mg/dL (40-59) Vitamin B12 Level 801 pg/mL (211-911) Vitamin D 25-Hydroxy 25.8 ng/mL (30.0-100) Thyroid Stimulating Hormone (TSH) 1.28 uIU/mL (0.55-4.78) Other Laboratory Tests 11/23/24 06:17 Brief Hx & Hospital Course: This is a 49-year-old male with past medical history of diabetes came to the hospital due to nonhealing right hallus wound with purulent discharge from the nail bed from 2-3 days. He also reports bilateral lower limb numbness and paresthesia. He denies fever, chest pain, shortness of breath, abdominal pain, nausea, vomiting, or any recent bowel and bladder habit changes. PMHx: Diabetes insulin dependent, hypertension, questionable osteoarthritis which started two months ago (he was going to see a biomedical engineering technician as outpatient), history of CHF (he believes ejection fraction is 40%), depression, GERD PSHx: Hernia repair. Coronary angiography in 2023 with no stent placement Family history: Diabetes in father, mother had heart disease Social history: Lives in [place] with and his offsprings. Ex polysubstance abuse (ethanol which he quit one year ago and methamphetamine which he quit eight years ago). Denies current tobacco, alcohol and other drug abuse. Home medication: Insulin, metformin, escitalopram, vitamin-B, pantoprazole, glimepiride, aspirin 81 mg p.o. daily, propranolol 20 mg p.o. daily Allergic history: No known allergy Hospital course: Patient was admitted for the evaluation diabetic foot. Patient was given empiric antibiotic of vancomycin and cefepime. Foot MRI showed mild subcutaneous edema, most prominent in the great toe, which is nonspecific, but may be seen with cellulitis in the appropriate clinical setting, Cystic change in the distal 1st metatarsal shaft and in the calcaneus near the angle of Gissane. Duplex ultrasound showed no evidence for peripheral vascular insufficiency in the right/left lower extremity. Podiatry consulted, recommended outpatient follow up on oral antibiotic upon discharge. Discharge plan discussed with the patient and was discharged home. Discharge plan: Tablet Augmentin b.i.d. for 10 days Follow up with the Podiatry on outpatient basis. Follow up with the PCP within 1 week after discharge. Continue home meds Operations or Procedures [place] [id number] Ph: [phone] DIAGNOSTIC IMAGING Diagnostic Imaging Report : [id number] Signed PATIENT: LINN PIERRE DACCT: [id number] UNIT: [id number] : 1975 LOC: OVERFLOW ROOM / BED: 1023-ER / A AGE / SEX: 49 / M ADM STATUS: ADM IN SERVICE 0341 ORDERING PHYSICIAN: MACHELLE GAY RESIDENT PROCEDURE(s): BLEAD - BiLat Low Ext Art Duplex REASON: Rule out PAD ORDER NUMBER(s): [id number], ACCESSION NUMBER(s): [id number] Bilateral Lower Extremity Arterial Duplex Date: 11/22/2024 08:16 AM Clinical History: Rule out PAD Comparison: None Findings: Duplex Doppler evaluation including color Doppler and spectral/pulsed waveform analysis of the lower extremity arteries was performed. Bilateral triphasic waveforms IMPRESSION: There is no evidence for peripheral vascular insufficiency in the right lower extremity. There is no evidence for peripheral vascular insufficiency in the left lower extremity. No significant focal stenosis is identified. END IMPRESSION: ATED BY: SHUN TAVARES MD DICTATED DATE/TIME: 11/22/24 0950 SIGNED BY: SHUN TAVARES MD SIGNED DATE/TIME: 11/22/24 0950 CC: [place] [id number] Ph: [phone] DIAGNOSTIC IMAGING Diagnostic Imaging Report : [id number] Signed PATIENT: LINN PIERRE DACCT: [id number] UNIT: [id number] : 1975 LOC: OVERFLOW ROOM / BED: [address] [place] [address] / A AGE / SEX: 49 / M ADM STATUS: ADM IN SERVICE 1201 ORDERING PHYSICIAN: NORMA ADRIAN DPM PROCEDURE(s): RFTMR - MRI R FOOT WO CONTRAST REASON: RULE OUT OSTEOMYELITIS ORDER NUMBER(s): [id number], ACCESSION NUMBER(s): [id number] CLINICAL HISTORY: 49 years old, Male; RULE OUT OSTEOMYELITIS. Indication for recent right foot radiographs was right foot pain. TECHNIQUE: Multi sequence multi planar MRI images of the right midfoot and forefoot were obtained without IV contrast. COMPARISON: Right foot radiographs dated 11/21/2024. FINDINGS: No acute fracture or focal marrow contusion. No marrow signal abnormality identified to suggest osteomyelitis. Mild T2 hyperintense signal in the distal shaft of the 1st metatarsal, may be due to interosseous cyst. Probable intraosseous ganglion cyst in the calcaneus near the angle of Gissane. Mild subcutaneous edema, most prominent in the great toe, which is nonspecific, although may be seen with cellulitis in the appropriate clinical setting. No organized fluid collection identified to suggest abscess. IMPRESSION: 1. Mild subcutaneous edema, most prominent in the great toe, which is nonspecific, but may be seen with cellulitis in the appropriate clinical setting. 2. No evidence of abscess or osteomyelitis. 3. Cystic change in the distal 1st metatarsal shaft and in the calcaneus near the angle of Gissane. ATED BY: DEMETRI WATERS DO DICTATED DATE/TIME: 11/22/24 1523 SIGNED BY: DEMETRI WATERS DO SIGNED DATE/TIME: 11/22/24 1523 CC: Condition at Discharge: Stable Final Diagnosis/Problems List Diabetic foot Cellulitis of right lower extremity Uncontrolled Diabetes mellitus type 2 with hyperglycemia Diabetic neuropathy Hypertension Dyslipidemia History of heart failure Ruled out osteomyelitis Generalized weakness Paresthesia Hypoxia Ruled out cardiomyopathy History of alcohol use disorder Ruled out peripheral artery disease Diabetic Polyneuropathy Vitamin-D deficiency Hypomagnesemia Discharge Disposition: Home Discharge Instruct/Medications Diet: Cardiac 2g Na,low cholest Activity: No Restrictions, As Tolerated Follow Up/Referral: Follow up with the PCP within 1 week of the discharge. Follow up with the Podiatry (Dr. Adrian) within 1 week of the discharge. Medications: Tablet Augmentin b.i.d. for 10 days Tablet ibuprofen 600 mg b.i.d. p.r.n. for pain Continue home meds Discharge Statement: "Patient was advised to return to the ER or call 911 if any headaches, dizziness, shortness of breath, chest pain, abdominal pain, bleeding, fevers, or worsening of medical condition. Patient was counseled about treatment plan, medications, possible side effects, patientverbalized understanding. All questions were answered to the best of my ability. This discharge took greater then 30 minutes in planning, reviewing documentation, counseling the patient, and discussing with other team members." ASSESSMENT ASSESSMENT Assessment Diabetic foot REINIER MORFIN Nov 23, 2024 14:51
[2024-11-23 17:00] VITALS: BP 133/85; PULSE 88; RESP 20; TEMP 98; O2SAT 98
--- NOTE | 2024-11-25 22:31 | DVHSR ---
APPROVED REPORT EXAM: Two-dimensional and M-mode echocardiogram with Doppler and color Doppler. Blood Pressure: 149/77 mmHg INDICATION History of CHF RISK FACTORS Height: 5' 5", Weight: 181 DIMENSIONS LVDd4.3 (3.8-5.7cm)LA (2D)3.6 (1.9-4.0cm)Aortic Root3.8 (2.0-3.7cm) LVDs2.6 (2.5-4.0cm)LA (MM) (1.9-4.0cm)Aortic Cusp Exc1.8 (1.5-2.0cm) EF (%) 70.0 (55-70%)Rt. Atrium3.6 (1.9-4.0cm)Asc. Aorta cm IVSd1.1 (0.7-1.1cm)RV (D) (1.8-2.4cm) PWd1.0 (0.7-1.1cm) Mitral Valve MitralMitral Stenosis E wave0.90m/sMV Mean GR.mmHg A wave0.80m/sMV Peak GR.mmHg E/A ratio1.12D MVAcm2 Aortic Valve Aortic ValveAortic Stenosis V10.70m/Kandace Mean GR.3mmHg V21.30m/Kandace Peak GR.8mmHg LVOT Diameter2.2 (1.8-2.4cm)Doppler AVA2.05cm2 Pulmonic Valve V20.60m/s Conclusion LV E FIS 70% NORMAL VALVES NORMAL RV FUNCTION AND SIZE NO EFFUSION
== END 2024-11-23 20:21 | disposition home or self-care (01) | DRG 383 ==
LOC: ER 14:32 → OVERFLOW 23:04 → WEST WING 11-22 23:34
PROVIDERS: ADMIT Student in an Organized Health Care Education/Training Program; ATTEND Student in an Organized Health Care Education/Training Program
DX: L03.115 Cellulitis of right lower limb (principal); E11.621 Type 2 diabetes mellitus with foot ulcer; E11.42 Type 2 diabetes mellitus with diabetic polyneuropathy; E11.65 Type 2 diabetes mellitus with hyperglycemia; L03.031 Cellulitis of right toe; I11.0 Hypertensive heart disease with heart failure; E78.5 Hyperlipidemia, unspecified; N18.9 Chronic kidney disease, unspecified; E83.42 Hypomagnesemia; Z79.4 Long term (current) use of insulin; Z82.49 Family history of ischemic heart disease and other diseases of the circulatory system; Z83.3 Family history of diabetes mellitus
CPT/HCPCS: 36415; 71045; 73630; 73718; 80053; 80061; 82306; 82607; 82962; 83036; 83605; 83735; 84100; 84443; 85025; 87040; 93306; 93925; 96365; 96367; 96375; G0378; J0692; J1815; J2405; J2470

== ENCOUNTER 2024-12-13 07:39 | Emergency (ER) | payer MEDICAID ==
[~2024-12-13] VITALS: Ht 165.1 cm; Wt 83.7 kg
[~2024-12-13 07:39] MED LIST: AUG875T PO
[2024-12-13 08:00] VITALS: BP 142/94; PULSE 103; RESP 14; TEMP 97.3; O2SAT 99
--- NOTE | 2024-12-13 08:55 | ED.PDOC ---
Back pain HPI HPI Comments This is a 49-year-old male with past medical history of diabetes recently discharged for a nonhealing right hallus wound with purulent discharge from the nail bed presents for bilateral leg pains. Symptoms started two days ago. No trauma no injury. He denies fever, chest pain, shortness of breath, abdominal pain, nausea, vomiting, or any recent bowel and bladder habit changes. PMHx: Diabetes insulin dependent, hypertension, questionable osteoarthritis which started two months ago (he was going to see a teller as outpatient), history of CHF (he believes ejection fraction is 40%), depression, GERD PSHx: Hernia repair. Coronary angiography in 2023 with no stent placement Family history: Diabetes in father, mother had heart disease Social history: Lives in [place] with and his offsprings. Ex polysubstance abuse (ethanol which he quit one year ago and methamphetamine which he quit eight years ago). Denies current tobacco, alcohol and other drug abuse. Home medication: Insulin, metformin, escitalopram, vitamin-B, pantoprazole, glimepiride, aspirin 81 mg p.o. daily, propranolol 20 mg p.o. daily Allergic history: No known allergy Chief Complaint: Body Pain Time Seen by MD: 07:56 Primary Care Provider: UNKNOWN Reviewed Notes: Nurses Notes, Medications, Allergies Allergies: Coded Allergies: NO KNOWN ALLERGIES (Unverified , 08/07/23) Home Meds Active Scripts Amoxicillin & Pot Clavulanate (AUGMENTIN TABLET) 875 Mg Tb, 875 MG PO BID for 10 Days, #20 TAB 1 Refill Prov:REINIER MORFIN [facility] 11/23/24 Information Source: Patient Mode of Arrival: Ambulatory Past Medical History PAST MEDICAL HISTORY: DM Surgical History: Denies all surgeries Family History Family History: Unknown Social History Smoker: Non-Smoker Alcohol: Heavy Drugs: Denies Drug Use Lives In: Home All Other Systems: Reviewed and Negative (Per HPI) Physical Exam General Appearance: No Apparent Distress, Normal HEENT: Normal ENT Inspection, Pharynx Normal, TMs Normal Neck: Full Range of Motion, Non-Tender, Normal, Normal Inspection Respiratory: Chest Non-Tender, Lungs Clear, No Accessory Muscle Use, No Respiratory Distress, Normal Breath Sounds Cardiovascular: No Edema, No JVD, No Murmur, No Gallop, Normal Peripheral Puls es, Regular Rate/Rhythm Breast Exam: Deferred Gastrointestinal: No Organomegaly, Non Tender, No Pulsatile Mass, Normal Bowel Sounds, Soft Genitalia: Deferred Pelvic: Deferred Rectal: Deferred Extremities: No calf tenderness, Normal capillary refill, Normal inspection, Normal range of motion, Non-tender, No pedal edema Musculoskeletal : Location: Bilateral Extremity Location: Leg (No gross abnormality. No erythema no effusions ecchymosis open wounds. No tenderness to palpation. Full passive active range of motion. Able to ambulate without assistive devices) Apperance: Normal Neurologic: Alert, drawer in plain loom II-XII nml as Tested, No Motor Deficits, Normal Affect, Normal Mood, No Sensory Deficits Cerebellar Function: Normal Reflexes: Normal Skin: Dry, Normal Color, Warm Lymphatic: No Adenopathy Was a procedure done? Was a procedure done?: No Back Pain Differential Dx Differential Diagnosis: Musculoskeletal Pain X-Ray, Labs, Meds, VS Vital Signs Date Time Temp Pulse Resp B/P (MAP) Pulse Ox O2 Delivery O2 Flow Rate FiO2 12/13/24 08:00 97.3 103 14 142/94 (110) 99 97.3 12/13/24 08:00 103 14 99 Room Air 12/13/24 07:42 97.3 103 14 142/94 (110) 99 97.3 X-Ray, Labs, Meds, VS Comment Discharge plan: Follow up with the Podiatry on outpatient basis. Follow up with the PCP within 1 week after discharge. Continue home meds Patient is stable for discharge at this time. External notes reviewed. Test results and diagnostic imaging interpreted. All diagnostic findings, discharge care, education and instructions provided Follow-up with PCP in 2 to 3 days Patient verbalized understanding and agreed to treatment plan Vital signs stable, afebrile, no acute distress noted Patient ambulatory with strong steady gait Advised to return precautions for any new or worsening symptoms, return to ER immediately for re-evaluation Patient is aware that the purpose of this visit was for an acute medical emergency requiring emergent stabilization. Chronic conditions, including malignancies have not been ruled out. Patient is instructed to follow up with PCP as directed and discharge instructions for continued care and workup. If unable to arrange follow-up, patient is to return to the emergency department for reassessment. Patient (parent or legal guardian if applicable) was given verbal and written discharge instructions and acknowledges understanding. Time of 1ST Reevaluation: 08:54 Reevaluation 1ST: Improved Patient Education/Counseling: Diagnosis, Treatment Family Education/Counseling: Diagnosis, Treatment Departure 1 Departure Time of Disposition: 08:55 Impression: Primary Impression: Musculoskeletal pain Disposition: 01 HOME / SELF CARE / HOMELESS Condition: Stable Discharged With: Self Critical Care Note Critical Care Time?: No Stability Stability form required: No Heart Score Heart Score: Heart Score Response (Comments) Value History N/A 0 EKG N/A 0 Age N/A 0 Risk Factors N/A 0 Troponin N/A 0 Total 0 SETH MCDANIELS NP December 13, 2024 08:55
[2024-12-13] MEDS: KETOROLAC TROMETH 30 MG/ML 1ML VIAL IM ONE (08:58)
== END 2024-12-13 09:37 | disposition home or self-care (01) ==
LOC: ER 07:45
DX: M79.18 Myalgia, other site (principal); M79.604 Pain in right leg; M79.605 Pain in left leg; E11.9 Type 2 diabetes mellitus without complications
CPT/HCPCS: 96372; 99283; J1885